=== PATIENT | female | born 1985 | race Caucasian/White ===

== ENCOUNTER 2019-03-17 21:09 | Emergency (ER) | payer OTHER ==
[~2019-03-17] VITALS: Ht 160 cm; Wt 86.6 kg
[2019-03-17 22:10] VITALS: BP 0/0
== END 2019-03-17 22:12 | disposition left against medical advice (07) ==
LOC: M.ERS 21:09
DX: Z53.21 Procedure and treatment not carried out due to patient leaving prior to being seen by health care provider (principal)

== ENCOUNTER 2020-01-17 05:14 | Emergency (ER) | payer OTHER ==
[~2020-01-17] VITALS: Ht 160 cm; Wt 97.5 kg
[2020-01-17] MEDS ORDERED: HAIR-SKIN-NAIL1 EACH PO (05:28)
[2020-01-17] MEDS ORDERED: PRENATAL VITAM1 EA10 PO (05:28)
[2020-01-17] MEDS ORDERED: KEFLEX500 M1 PO (05:50)
[2020-01-17 06:04] VITALS: BP 134/60
== END 2020-01-17 06:04 | disposition home or self-care (01) ==
LOC: M.ERS 05:14
DX: O26.899 Other specified pregnancy related conditions, unspecified trimester (principal); S90.822A Blister (nonthermal), left foot, initial encounter; L03.116 Cellulitis of left lower limb; F17.210 Nicotine dependence, cigarettes, uncomplicated; Z3A.00 Weeks of gestation of pregnancy not specified; X58.XXXA Exposure to other specified factors, initial encounter; Y93.89 Activity, other specified; Y92.89 Other specified places as the place of occurrence of the external cause; Y99.8 Other external cause status